=== PATIENT | female | born 1990 | race Caucasian/White ===

== ENCOUNTER 2016-11-08 19:20 | Emergency (ER) | payer OTHER ==
--- NOTE | ~2016-11-08 | ER ---
PATIENT'S NAME: CLAUDETTE BARLOW [facility] AGE: 26 Y [address] ROOM: [place] [address] LOCATION: [facility] ADMIT DATE: 11/08/2016 ER/Outpatient Report DISCHARGE DATE: 11/08/2016 FAMILY PHYSICIAN: Rosas Lim MD ATTENDING PHYSICIAN: Jose J Mancera Admission date and time documented in medical record, I saw the patient at 1930 hours. CHIEF COMPLAINT: Anterior lower bilateral chest ribcage, chest wall pain accompanied with shortness of breath and nausea. HISTORY OF PRESENT ILLNESS: The patient is a 26-year-old female, who around 1530 hours this afternoon developed pain in her lower anterior chest ribcage. Has a shooting pain around to her back with movement. Has some shortness of breath and nausea. No vomiting. No diaphoresis. No lightheadedness, dizziness, syncope, or near syncope. No fall or trauma. Has recently had an upper respiratory infection, now has persistent cough. Cough is nonproductive. No fever, chills, or sweats. No headache; eyes, ears, nose, throat, neck, or spine pain. No abdominal pain. No vomiting, diarrhea, urinary frequency, urgency, or dysuria. No joint or muscle swelling, redness, or pain. No skin eruptions or rash. Does have a history of anxiety both bipolar disorder with panic attacks and depression. No neuro changes or endocrine problems. HOME MEDICATIONS: See attached medication list. ALLERGIES: NONE. SOCIAL HISTORY: The patient smokes about one cigarette a day, does smoke marijuana daily. No alcohol. SIGNIFICANT PAST MEDICAL HISTORY: Panic attacks, bipolar disorder with anxiety and depression, remote meth abuse, does use marijuana and tobacco. OPERATIONS: x2. REVIEW OF SYSTEMS: All systems reviewed by me are negative with exception of those discussed in [facility] 26 Y [address] ROOM: [place] [address] LOCATION: [facility] ADMIT DATE: 11/08/2016 ER/Outpatient Report DISCHARGE DATE: 11/08/2016 FAMILY PHYSICIAN: Rosas Lim MD ATTENDING PHYSICIAN: Jose J Mancera history of present illness. PHYSICAL EXAMINATION: VITAL SIGNS: Temperature 97.8 tympanic, pulse 71, respirations 16, blood pressure 116/77, and O2 saturation on room air is 98%. HEAD: Normocephalic. No abrasion, contusion, laceration, swelling of the scalp or face. HEENT: Eyes, extraocular muscles intact. PERRL. Sclerae and conjunctivae clear, nonicteric. Ears, clear TMs bilaterally. Nose, clear. Throat, clear. Mucous membranes moist. Teeth and jaw intact. NECK: No nuchal rigidity. No thyromegaly or cervical adenopathy. Range of motion full. SPINE: Negative. LUNGS: Clear and good air flow. No rales, rhonchi, or wheezes. HEART: Regular. Pulses are palpable. The patient has no deformity of the chest wall, some tenderness over the lower sternum and lower anterior ribcage to palpation. ABDOMEN: Soft, nondistended, nontender. Good bowel tones. No organomegaly or abnormal mass palpable. No CVA tenderness. PELVIS: Stable. Nontender. EXTREMITIES: Moves all 4 extremities. No peripheral edema, cyanosis, or deformity. Neurovascularly intact. SKIN: Clear. No skin eruptions or rash. DIAGNOSTIC DATA: EKG showed sinus rhythm. No acute ST elevation, ischemic change, or arrhythmia. Chest x-ray showed no acute infiltrate or changes. We will review x-ray with radiologist. LABORATORY DATA: Quantitative serum HCG was negative. ProBNP was normal at 71. CMS was normal except for an elevated glucose 106 and magnesium normal at 2.0. CPK was normal at 111. Point of care cardiac enzymes were normal. White count is 8800, 62 segs, 27 lymphs, 8 monos, and 2 eos; hemoglobin is 12.8; hematocrit is 38.3; and platelet count is 369,000. PTT was 30, pro-time was 10.2 with an INR of 0.97. IMPRESSION: 1. Lower bilateral anterior chest pain involving the lower ribcage and lower sternum. Most likely inflammatory costochondritis. No evidence of cardiac or pulmonary problems. 2. Bipolar disorder with anxiety, depression, and history of panic attacks. 3. Daily marijuana use and tobacco use. PLAN: PATIENT'S NAME: CLAUDETTE BARLOW [facility] AGE: 26 Y [address] ROOM: [place] [address] LOCATION: [facility] ADMIT DATE: 11/08/2016 ER/Outpatient Report DISCHARGE DATE: 11/08/2016 FAMILY PHYSICIAN: Rosas Lim MD ATTENDING PHYSICIAN: Jose J Mancera The patient was given Ativan 1 mg IV in the emergency room, Toradol 30 mg IV in the emergency room, Solu-Medrol 125 mg IV in the emergency room. Discharged home. Observation. Activity as tolerated. Heating pad to sore areas of the anterior chest intermittently as needed. Continue present home medications and care. Fluids and diet as tolerated. Medrol Dosepak take as directed. Naprosyn 500 mg one 2 times a day with food, #20. Follow up with personal physician in 5 to 7 days if no improvement or as needed. Discussion ensued with the patient regarding my findings and recommendations. She understands. JOSE J MANCERA MD SDS/modl /[id number] d: 11/08/16 2324 t: 11/09/16 1808, OUTPATIENT REPORT
[~2016-11-08 19:20] MED LIST: APNO TOP; LANSINOH7 GM TOP; PERCOCET 5-3251 EACH PO; PRENATAL 1+1)(P1 TAB PO
[2016-11-08 19:42] LABS: BASOPHIL % 0.3 %; EOSINOPHIL # 0.1 K/uL (0.0-0.5); EOSINOPHIL % 1.6 %; HEMATOCRIT 38.3 % (33.0-46.0); HEMOGLOBIN 12.8 g/dL (11.0-15.0); IMMATURE GRANULOCYTE % 0.2 %; LYMPHOCYTE # 2.4 K/uL (0.8-4.0); LYMPHOCYTE % 27.3 %; MCH 30.4 pg (27.0-34.0); MCHC 33.4 gm/dL (32.0-36.5); MONOCYTE # 0.7 K/uL (0.0-1.0); MONOCYTE % 8.2 %; MPV 9.3 fl (9.4-12.4); NEUTROPHIL # (ANC) 5.5 K/uL (1.8-7.8); NEUTROPHIL % 62.4 %; NRBC % 0 /100WBC (0-0.00); PLATELET COUNT 369 K/uL (150-450); RBC 4.21 M/uL (3.50-5.00); RDW-CV 12.6 % (11.9-14.6); WBC 8.8 K/uL (4.0-11.0)
[2016-11-08 19:55] LABS: INR - (THERAPEUTIC) 0.97 (0.92-1.07); PROTIME 10.2 SECONDS (9.8-11.4); PTT 30 SECONDS (25-32)
[2016-11-08 20:01] LABS: ALK PHOS 77 IU/L (33-138); ALT 25 IU/L (12-78); AST 21 IU/L (10-40); BLOOD UREA NITROGEN 7 mg/dL (6-24); CALCIUM 8.9 mg/dL (8.5-10.5); CHLORIDE 107 mMol/L (96-110); CO2 24 mMol/L (22-32); CPK 111 IU/L (21-215); CREATININE 0.8 mg/dL (0.5-1.1); SODIUM 139 mMol/L (135-145); TOTAL BILIRUBIN 0.3 mg/dL (0.0-1.5)
== END 2016-11-08 21:10 | disposition disaster alternative care site (69) ==
LOC: GMED 19:20
PROVIDERS: Emergency Medicine
DX: R07.89 Other chest pain (principal); F31.9 Bipolar disorder, unspecified; F41.9 Anxiety disorder, unspecified; F12.90 Cannabis use, unspecified, uncomplicated; F41.0 Panic disorder [episodic paroxysmal anxiety]; F17.210 Nicotine dependence, cigarettes, uncomplicated; Z98.890 Other specified postprocedural states; Z79.899 Other long term (current) drug therapy
CPT/HCPCS: J1885; J2060; J2270; J2930